=== PATIENT | female | born 1980 | race Two or more races ===

== ENCOUNTER 2024-07-11 19:38 | Emergency (ER) | payer MEDICAID, SELFPAY ==
[2024-07-11 20:54] VITALS: BP 150/80; PULSE 74; RESP 18; TEMP 36.5; O2SAT 98
[2024-07-11 20:55] VITALS: BMI 29.1
--- NOTE | 2024-07-11 21:16 | PD.EDFMALE ---
ED Female Urogenital RME/HPI General Chief complaint: Urogenital-Female Stated complaint: PAIN WITH URINATION Time Seen by Provider: 07/11/24 20:47 Arrival date/time: 07/11/24 19:38 RME / HPI RME / HPI Narrative: This section includes all my notes and documentations, including HPI, PE, and ED course. Husam Vazquez MD HPI: 44 y/o female presents to ED c/o dysuria since yesterday. Patient denies any fever or vomiting. No other complaints reported. ROS: All negative except as documented in HPI. Physical Exam: General: Alert and oriented. No acute distress. Eyes: Conjunctivae and lids clear. ENT: No nasal congestion. Neck: Supple. Lungs: No respiratory distress. Abdomen: Soft and nontender. Normal bowel sounds. No distension. No rebound or guarding. Back: No CVA tenderness. Skin: Warm and dry. Neuro: Alert and oriented X 3. I reviewed all diagnostic test results. UA showed positive leukocyte Estrace, 12 RBC, 65 WBC. At this point, diagnoses include UTI. Treatment here included Pyridium and Macrobid. She started to feel better. Recommend outpatient treatment. Based on my best medical judgment, made decision no further evaluation or treatment indicated at this time. Patient understands and agrees to the discharge instructions customized and printed, see below. Discharge instructions from Dr. Vazquez: 1. After evaluation, you have UTI (see attached handout). 2. Take Macrobid to kill the germs causing the infection. Increase oral fluid to flush it out. Maintain clear urine. If dark or yellow, increase oral fluid. 3. See a private doctor on 07/15/2024 for recheck. Ask to check the final urine culture results from today to make sure Macrobid doesn't need to be changed due to resistance. 4. Seek immediate medical care with worsening, fever, or with any concerns. Husam Vazquez MD Related Data Previous Rx's ?Medication ?Instructions ?Recorded doxycycline hyclate 100 mg tablet 100 mg PO BID #14 tabs 12/02/22 ibuprofen 600 mg tablet 600 mg PO Q8H PRN pain #20 tabs 12/02/22 nitrofurantoin 100 mg PO BID #14 caps 07/11/24 monohydrate/macrocrystals 100 mg capsule (Macrobid) Allergies Allergy/AdvReac Type Severity Reaction Status Date / Time No Known Allergies Allergy Verified 07/11/24 19:38 Review of Systems Review of Systems Systems Reviewed: All systems reviewed, normal except as documented Narrative Review of Systems: Refer to HPI above. Past Medical History Surgical History SURGICAL: Positive Section (x3) ED Exam Narrative Physical exam: Refer to HPI above. Course Quality Measures none Orders Category Date Time Status HCG Qualitative,Urine Stat Lab 07/11/24 21:25 Completed UA, C/S IF [Urinalysis, C/S if Indicated] Stat Lab 07/11/24 21:25 Completed Urine Culture Stat Lab 07/11/24 21:25 Received Nitrofurantoin Macro [Macrobid] Med 07/11/24 23:12 Discontinued 100 mg PO X1 ONE Phenazopyridine HCl [Pyridium] Med 07/11/24 20:55 Discontinued 200 mg PO X1 ONE Vital Signs Vital signs: Vital Signs Temperature 97.7 F 07/11/24 20:54 Pulse Rate 74 07/11/24 20:54 Respiratory Rate 18 07/11/24 20:54 Blood Pressure 150/80 H 07/11/24 20:54 Pulse Oximetry (%) 98 07/11/24 20:54 Oxygen Delivery Method Room Air 07/11/24 20:54 Urogenital - Female MDM Narrative MDM Narrative:: Scribe Attestation: Lauren Jordan am scribing for and in the presence of Dr. Vazquez. Provider Notation: Although this document has been carefully reviewed, there may still be some phonetic and other typographical errors. These errors are purely grammatical due to imperfections in the software program and should not be construed in any way to compromise the substance of the patient's medical care during this visit. Patient data External records reviewed:: [facility] previous records (Prior ED records reviewed from 12/02/22. Patient was seen for Abscess of Bartholin's gland.) Clinical information provided by:: patient Social determinants that could affect healthcare access:: none Patient has the following chronic illnesses:: None How is presenting disease/condition affected by chronic disease/condition?: no chronic disease Evaluation data The following diagnostics were reviewed and interpreted by me:: lab results Lab and/or radiology exams considered but not ordered:: None Interpretation Summary: UTI Medications / Prescriptions Medications or Prescriptions considered but not ordered:: None Medication administrations:: Medication Administration History Discontinued Medications Nitrofurantoin Macrocrystals (Nitrofurantoin Macro 100 Mg Capsule) 100 mg PO X1 ONE Stop: 07/11/24 23:13 Last Admin: 07/11/24 23:23 Dose: 100 mg Documented By: PAYTON Phenazopyridine HCl (Phenazopyridine Hcl 100 Mg Tablet) 200 mg PO X1 ONE Stop: 07/11/24 20:56 Last Admin: 07/11/24 21:55 Dose: 200 mg Documented By: LINDA Phenazopyridine HCl, Nitrofurantoin Macrocrystals Consultations Consultation(s) initiated? (list below): No Diagnosis Urogenital Female Differential Diagnosis: urinary tract infection, bacterial vaginosis, trichomoniasis, cervicitis, vaginitis and cystitis Most likely diagnosis given after review of the tests above:: Urinary tract infection Admission Indicated Admission indicated?: not indicated Explain why admission is indicated or not indicated:: With significant improvement, there was no indication for admission. Admission Request Was there a request for admission?: No Disposition Plan Disposition Plan: Discharge Discharge Attestation Discharge Attestation: The patient and all family members were given an opportunity to ask questions and understood the discharge instructions. Discharge instructions specifically effects, indications for sooner follow up or return to the emergency department, and the expected course of current diagnosis. Patient condition: Stable Discharge Plan Plan Patient Disposition: HOME (Self Care) Prescriptions/Referrals Prescriptions/Med Rec: New nitrofurantoin monohyd/m-cryst [Macrobid] 100 mg capsule 100 mg PO BID Qty: 14 0RF Rx Instructions: must administer with a meal/food No Action doxycycline hyclate 100 mg tablet 100 mg PO BID Qty: 14 0RF ibuprofen 600 mg tablet 600 mg PO Q8H PRN (Reason: pain) Qty: 20 0RF Referrals: No Primary/Family,Physician [Primary Care Provider] - In 1 week Problem List Clinical Impression: UTI (urinary tract infection) Patient/Caregiver Discharge Instructions Discharge Activity: activity as tolerated Education Materials: ED CYSTITIS Female Adult Additional Instructions: Discharge instructions from Dr. Vazquez: 1. After evaluation, you have UTI (see attached handout). 2. Take Macrobid to kill the germs causing the infection. Increase oral fluid to flush it out. Maintain clear urine. If dark or yellow, increase oral fluid. 3. See a private doctor on 07/15/2024 for recheck. Ask to check the final urine culture results from today to make sure Macrobid doesn't need to be changed due to resistance. 4. Seek immediate medical care with worsening, fever, or with any concerns. Instrucciones de vonda del Dr. Vazquez: 1. Despu?s de la evaluaci?n, presenta robbie infecci?n urinaria (saúl el folleto adjunto). 2. [place] Macrobid para eliminar los g?rmenes que causan la infecci?n. Aumente la cantidad de fluidos bucales para eliminarlos. Mantenga la orina josie. Si es oscura o amarilla, aumente la cantidad de fluidos bucales. 3. Consulte con un m?dico particular el 15/07/2024 para robbie nueva revisi?n. Solicite que revisen los resultados finales del urocultivo de hoy para asegurarse de que no sea necesario cambiar la dosis de Macrobid debido a la resistencia. 4. Busque atenci?n m?dica inmediata si presenta empeoramiento, fiebre o cualquier inquietud. Print Language: Serbian Stand Alone Forms: Danielle Award Info., Patient Portal Info Letter
[2024-07-11] MEDS: PHENAZOPYRIDINE HCL 100 MG TABLET 200 MG PO (21:55)
[2024-07-11 22:15] LABS: Collection Type, Urine Clean Catch
[2024-07-11 22:32] LABS: Bilirubin,Urine Negative (Negative); Blood,Urine 3+ (Negative); Clarity,Urine Clear (Clear/Hazy); Color,Urine Colorless (Lt Yel-Yel); Culture Indicated,Urine Yes; Glucose, Urine Negative (Negative); Ketones,Urine Negative (Negative); Leukocyte Esterase,Urine Positive (Negative); Nitrite,Urine Negative (Negative); PH,Urine 6.5 (5.0-7.0); Protein,Urine Negative (Neg - Trace); RBC,Urine 12 /hpf (0-3); Specific Gravity,Urine 1.004 (1.001-1.035); Squamous Epithelial Cell,Urine 3 /hpf (0-5); Urobilinogen,Urine Negative mg/dL (0.0-1.0); WBC,Urine 65 /hpf (0-5)
[2024-07-11 22:33] LABS: HCG Qualitative,Urine Negative
[2024-07-11] MEDS: NITROFURANTOIN MACRO 100 MG CAPSULE PO (23:23)
[2024-07-11 23:30] VITALS: BP 139/86; PULSE 77; RESP 19; TEMP 36.4; O2SAT 98
== END 2024-07-11 23:32 | disposition home or self-care (01) ==
PROVIDERS: Emergency Provider Emergency Medicine
DX: N39.0 Urinary tract infection, site not specified (principal)
CPT/HCPCS: 81001; 81025; 87086; 99283; A9270

== ENCOUNTER 2024-08-02 12:50 | Emergency (ER) | payer MEDICAID, SELFPAY ==
[2024-08-02 13:25] VITALS: BP 134/91; PULSE 74; RESP 18; TEMP 36.8; O2SAT 97; BMI 30.2
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
== END 2024-08-02 14:35 | disposition home or self-care (01) ==
PROVIDERS: Emergency Provider Family Medicine; PCP Family Medicine
DX: S13.4XXA Sprain of ligaments of cervical spine, initial encounter (principal); S09.90XA Unspecified injury of head, initial encounter; V49.9XXA Car occupant (driver) (passenger) injured in unspecified traffic accident, initial encounter
CPT/HCPCS: 70450; 72125; 99284